=== PATIENT | male | born 1985 | race Caucasian/White ===

== ENCOUNTER 2024-04-05 12:26 | Inpatient (IN) | payer OTHER, SELFPAY ==
[2024-04-05] VITALS (17 sets, daily range): BP systolic 127–189; BP diastolic 88–143; BMI 24.8
--- NOTE | 2024-04-05 09:22 | ED.GENMED ---
History of Present Illness
General
Chief Complaint: Crisis Evaluation
Source: patient and significant other
Exam Limitations: none
Time Seen by Provider: 04/05/24 09:02
Nursing documentation reviewed up to this point in time: agreed with
Travel History
Have you had any contact with someone who has COVID-19?: No
Do you have any symptoms of coronavirus? Fever > 100 degrees, chills, cough, shortness of breath, sore throat, loss of taste or smell, muscle aches, or headache?: No
History of Present Illness
History of Present Illness:
38-year-old male with a past medical history of polysubstance use who presents to the emergency department brought in by police on a 302 for bizarre behavior/delusions. Apparently he was found running around in the [place] today, was talking
to himself. He was doing similar things last night. Patient says that he believes that a friend with high level government clearance set up an obstacle course using holograms and he says that he was in the [place] obstacle [place].
He tells me that he feels physically fine�'I feel great.' He says that he had some alcohol last night but nothing today. He denies any drug use to me although apparently his girlfriend raise concerns for methamphetamine use. He denies any
suicidal feelings or intents and denies any homicidal ideation. Denies any chest pain, abdominal pain, shortness of breath, headache, neck pain, pain in his extremities, nausea or any other issues today.
Past History
Past History
ED Past Medical History: None
ED Past Surgical History: None
Social History
Tobacco: Smoker
Alcohol: None
Drug: Other (history of)
Personal:
Living: with family
Employment: Not employed
Family History
Family History: Hypertension
Review of Systems
Review of Systems
All Other Systems: ROS reviewed and negative except as documented in HPI and ROS
Respiratory: Denies trouble breathing
Cardiac: Denies chest pain
ABD/GI: Denies abdominal pain, nausea or vomiting
: Denies flank pain
Musculoskeletal: Denies neck pain or back pain
Neurological: Denies headache
Phy Exam
Physical Exam
Physical Exam:
General: Awake, alert, oriented x3; pressured speech, somewhat restless and shifting in the bed
Head: Normocephalic, atraumatic
Eyes: Conjunctiva normal, pupils 4 mm and reactive to light bilaterally
Throat: Airway intact, handling secretions
Neck: Trachea midline, supple without meningismus
Lungs: Clear to auscultation bilaterally, no wheezing, rales, rhonchi
Heart: Tachycardia with regular rhythm, no murmurs, gallops, or rubs
Abd: Soft, non distended, nontender
Neuro: Cranial nerves grossly intact, no gross motor or sensory deficits
Skin: He has some scratches/excoriations on the arms and the legs, no signs of cellulitis or infection
Extremities: Warm and well-perfused with no edema
Scores
Heart Failure Risk
Heart Failure Risk Score: Not Applicable
Heart Score for Chest Pain Patients
STEMI patient?: Not applicable
Withdrawal Assessment of Alcohol
Withdrawal Assessment Completed?: Not applicable
Course
Orders/Labs/Results
Orders:
Orders
04/05/24 09:16
Drug Screen, Urine [Urine Drug Abuse Screen] Urgent
Date Specimen was Collected: 04/05/24
Time Specimen was Collected: 10:37
04/05/24 09:17
Crisis Consult Routine
Reason for Consult: psychosis
04/05/24 09:27
Lorazepam [Ativan] 0.5 mg PO NOW STA
04/05/24 09:28
Electrocardiogram (*1) Urgent
Reason for Study: Bradycardia / Tachycardia
EKG- Treatment ONCE
04/05/24 09:30
CPK [Creatine Phosphokinase] Urgent
04/05/24 09:31
Acetaminophen Urgent
Alcohol Urgent
CMP [Comprehensive Metabolic Panel] Urgent
Complete Blood Count/With Diff Urgent
Salicylate Urgent
04/05/24 10:08
Bladder Scan- Treatment ONCE
Urinalysis Reflex To Culture Urgent
Date Specimen was Collected: 04/05/24
Time Specimen was Collected: 10:37
0.9% Sodium Chloride 1000 ml [Nss] 1,000 ml IV BOLUS
US Renal With Bladder Urgent
Comment:
Reason For Exam: PRECIOUS
Abnormal Lab Results
04/05/24
09:31
WBC 16.1 H 10^3/uL
(4.8-10.8)
MCH 31.5 H pg
(27.0-31.0)
Abs Immat Gran (auto) 0.1 H 10^3/uL
(0-0.05)
Absolute Neuts (auto) 13.2 H 10^3/uL
(1.4-6.5)
Absolute Lymphs (auto) 1.0 L 10^3/uL
(1.2-3.4)
Absolute Monos (auto) 1.7 H 10^3/uL
(0.1-0.6)
Neutrophils % 82.1 H %
(42.2-75.2)
Lymphocytes % 6.5 L %
(20.5-51.1)
Monocytes % 10.7 H %
(1.7-9.3)
Carbon Dioxide 14 L* mmol/L
(22-30)
BUN 42 H mg/dl
(9-20)
Creatinine 3.2 H mg/dL
(0.7-1.3)
Glucose 106 H mg/dl
(70-99)
AST 352 H U/L
(17-59)
ALT 122 H U/L
(0-50)
Total Protein 8.8 H g/dl
(6.3-8.2)
Albumin 5.6 H g/dl
(3.5-5.0)
Salicylates < 1.0 L mg/dl
(2.0-20.0)
Acetaminophen < 10 L ug/ml
(10-30)
04/05/24 09:31
04/05/24 09:31
Vital Signs
Initial and Last Documented VS:
Initial Vital Signs
Temp Pulse Resp BP Pulse Ox
37.2 C 130 22 189/119 96
04/05/24 09:01 04/05/24 09:01 04/05/24 09:01 04/05/24 09:01 04/05/24 09:01
Last Documented Vital Signs
Temp Pulse Resp BP Pulse Ox
37.2 C 130 22 189/119 96
04/05/24 09:01 04/05/24 09:01 04/05/24 09:01 04/05/24 09:01 04/05/24 09:01
MDM/Problems Addressed
Differential Diagnosis Includes:
Psychosis, drug intoxication, alcohol intoxication, ron
MDM/Problems Addressed:
38-year-old male presents to the emergency room on a 302 filed by police after being found running in the [facility] has delusions that a friend with high level government clearance set up an obstacle course in the [facility] using holograms. He denies
drug or alcohol use today but apparently his significant other was concern for methamphetamine use. He has no physical complaints and says that he feels well. He is hypertensive and tachycardic, otherwise normal vitals. Exam as above. Will plan
to check basic screening labs including a CBC, CMP, Tylenol and salicylate levels, alcohol level, UDS. Will check screening EKG. He does appear somewhat restless/anxious will dose with some p.o. Ativan which I suspect will also help with
tachycardia and hypertension. 302 has been followed by police, crisis is aware of the patient, will monitor on continuous observation. Reassess after the above.
Labs reviewed: CBC shows a leukocytosis to 16.1. CMP shows acute kidney injury with a creatinine of 3.2 from baseline of less than 1. He has a metabolic acidosis with a bicarb of 14 and elevated anion gap of 20. Glucose is normal. Suspect anion
gap acidosis is secondary to uremia from his acute kidney injury. Added on CPK given reported methamphetamine use and concern for possible rhabdomyolysis, also added a urinalysis. Could also be prerenal secondary to dehydration in the setting of
his recent bizarre behavior. Ordered 1 L of normal saline to start. Will check a bladder scan for signs of retention. Check a renal bladder ultrasound. Will plan for medical admission prior to psychiatric treatment�updated our crisis team.
Chronic conditions affecting care:
Substance use
Acute Exacerbation and/or Progression of Chronic Illness:
Acutely hypertensive
Acute Exacerbation and/or Progression of Chronic Illness: HTN
*Pulse Oximetry
Patient hypoxic: no
*EKG
Interpreted by ED Provider?: Yes
Heart Rate: 117
Rate: tachycardiac
Rhythm: sinus
[place]: normal axis
Interval: normal interval
QRS Pattern: normal QRS
Ischemia: non-specific ST changes
*Critical Care Note
Total Time (30-74mins, 75-104mins- exclusive of procedures): Not Applicable
Data Reviewed
Source: patient
Patient Management
Discussion with other providers: Hospitalist (Discussed with hospitalist) and Other (Discussed with our crisis staff)
Escalation/DeEscalation of care consider admission/obs:
Medical admission indicated
ED Attending Note
-
Portions of this chart may have been created with voice recognition software.� Occasional wrong word or��sound alike� substitutions may have occurred due to the inherent limitations of voice recognition software.
Discharge Plan
Departure
Admit to doctor: Tristan
Presentation/result/management discussed w/ accepting MD/DO: Hospitalist
Discharge Problem:
Psychosis, PRECIOUS (acute kidney injury), LFT elevation
Prescriptions:
No Action
metronidazole 500 MG tablet
500 mg PO TID Qty: 21 0RF
ciprofloxacin HCl 500 MG tablet
500 mg PO BID Qty: 14 0RF
oxycodone-acetaminophen 5 MG/325 MG tablet
1 tab PO Q6HPRN PRN (Reason: pain) Qty: 7 0RF
Referrals:
UNKNOWN,NO INTERVIEW [Family Provider] -
Interventions
Interventions:
*Risk Screen - Suicide Last Done: 04/05/24 08:55
*General Assessment Last Done: 04/05/24 09:04
*Neglect/Abuse Screening Last Done: 04/05/24 08:55
ED- Fall Risk Assessment Last Done: 04/05/24 09:04
*ED COVID-19 Vaccine History Last Done: 04/05/24 08:55
ED-Psychological Assessment Last Done: 04/05/24 09:04
Discharge Date and Time
Print Language: SLOVAK
[2024-04-05 09:44] LABS: % Basophils 0.3 % (0-2); % Immature Granulocytes 0.4 % (0-0.5); % Lymphocytes 6.5 % (20.5-51.1); % Monocytes 10.7 % (1.7-9.3); % Neutrophils 82.1 % (42.2-75.2); Absolute Basophils 0.1 10^3/uL (0-0.2); Absolute Immature Granulocytes 0.1 10^3/uL (0-0.05); Absolute Monocytes 1.7 10^3/uL (0.1-0.6); Absolute Neutrophils 13.2 10^3/uL (1.4-6.5); Hematocrit 43.4 % (39.0-52.0); Hemoglobin 15.9 g/dL (13.0-18.0); Mean Corp Hgb Conc. 36.6 g/dL (33.0-37.0); Mean Corpuscular Hgb 31.5 pg (27.0-31.0); Mean Corpuscular Volume 86.1 fL (80.0-94.0); Nucleated Red Blood Cells % 0 % (-); Platelet Count 229 10^3/uL (130-400); Red Blood Cell Count 5.04 10^6/uL (4.70-6.10); Red Cell Dist. Width 12.4 % (11.5-14.5); White Blood Cell Count 16.1 10^3/uL (4.8-10.8)
[2024-04-05 10:01] LABS: ALT (SGPT) 122 U/L (0-50); AST (SGOT) 352 U/L (17-59); Acetaminophen < 10 ug/ml (10-30); Albumin 5.6 g/dl (3.5-5.0); Alcohol < 10 mg/dl; Alkaline Phosphatase 82 U/L (38-126); Blood Urea Nitrogen 42 mg/dl (9-20); Calcium 10.2 mg/dl (8.4-10.2); Carbon Dioxide 14 mmol/L (22-30); Chloride 102 mmol/L (98-107); Estimated Creatinine Clearance 29 ml/min; Glucose 106 mg/dl (70-99); Potassium 3.7 mmol/L (3.5-5.1); Salicylate < 1.0 mg/dl (2.0-20.0); Sodium 136 mmol/L (135-145); Total Bilirubin 1.3 mg/dl (0.2-1.3); Total Protein 8.8 g/dl (6.3-8.2); eGFR 24.31
[2024-04-05] MEDS: NSS 1000 IV (11:04)
[2024-04-05 11:10] LABS: Urine Albumin 1+ (Neg - Trace); Urine Bilirubin 1+ (Negative); Urine Character Clear (Clear); Urine Color Amber; Urine Glucose Negative (Negative); Urine Ketone 2+ (Negative); Urine Leukocyte Trace (Negative); Urine Nitrite Negative (Negative); Urine Occult Blood 4+ (Negative); Urine Specific Gravity 1.025 (<1.030); Urine Urobilinogen Negative (Neg - 1+)
[2024-04-05 11:12] LABS: Creatine Phosphokinase 14776 U/L (55-170)
--- NOTE | 2024-04-05 11:25 | PHANOTE ---
Med Rec Note- patient has no pharmacy or ecw records at this time, patient currently been talk to by police and staff
[2024-04-05 11:39] LABS: Amphetamines Positive (Negative); Barbiturates Negative (Negative); Benzodiazepines Negative (Negative); Buprenorphine Negative (Negative); Cocaine Negative (Negative); Marijuana Positive (Negative); Methadone Negative (Negative); Methamphetamines Positive (Negative); Opiates Negative (Negative)
[2024-04-05 11:40] LABS: Phencyclidine Negative (Negative); Tricyclic Antidepressants Negative (Negative)
[2024-04-05 11:47] LABS: Urine Red Blood Cell 0-2 /HPF (0-2); Urine White Cell 0-2 /HPF (0-5)
--- NOTE | 2024-04-05 11:54 | HPS.HSE ---
Family Physician
-
Family Physician: NO INTERVIEW UNKNOWN
Chief Complaint
-
Bizarre behavior
History of Present Illness
38-year-old male with a past medical history of cigarette nicotine dependency and polysubstance use was brought in by police under a 302 for bizarre behavior with delusional thoughts. Per report, patient was found running around in [place] today. He was witnessed talking to himself. Patient states that his nephew came home a few nights ago, and he was with his nephew. Then he says that this morning, he was outside in the [place] doing an obstacle course. He admits to using
marijuana, states he has a medical marijuana card. He denies other street drug use. He denies audio hallucinations. No suicidal ideation, homicidal ideation. No chest pain, shortness of breath, abdominal pain, nausea, or vomiting.
Medical History
Past Medical History
Past Medical History: Reports Other
Additional Past Medical History:
Polysubstance abuse
Left ankle injury status post surgery
Internal hemorrhoids
Past Surgical History: Reports Other
Additional Past Surgical History:
Left ankle surgery
Social History
Tobacco: Smoker
Alcohol: Occasional
Drug: Marijuana
Family History
Family History: Not pertinent
Allergies / Home Medications
Allergies reflects when Allergies were last updated in [employer].
Home Medications with original date entered in [employer]
Allergy/Medication List:
Allergies
Allergy/AdvReac Type Severity Reaction Status Date / Time
NKA - No Known Allergies Allergy Unknown Uncoded 04/05/24 09:04
Home Medications Table - record
�Medication �Instructions �Recorded �Confirmed
Unobtainable 04/05/24 04/05/24
Review of Systems
-
A 12 point ROS was completed and negative except as noted: Yes
Physical Exam
Vital Signs
Vital Signs
Temp Pulse Resp BP Pulse Ox
98.9 F 110 16 183/111 97
04/05/24 09:01 04/05/24 11:30 04/05/24 11:30 04/05/24 11:30 04/05/24 11:30
Physical Exam
General: No Apparent Distress and Other (Appears agitated)
HEENT: NormoCephalic, Anicteric and Moist mucous membranes
Respiratory: Clear
Cardiac: Tachycardia
GI: Soft
Musculoskeletal: No Clubbing, No Cyanosis and No Edema
Laboratory Results
-
04/05/24 09:31
04/05/24:
Laboratory Results
Total Bilirubin 1.3 mg/dl (0.2-1.3) 04/05/24:31
AST 352 U/L (17-59) H 04/05/24:
ALT 122 U/L (0-50) H 04/05/24:31
Alkaline Phosphatase 82 U/L (38-126) 04/05/24 09:31
Impression/Plan
-
HPI: 38-year-old male with a past medical history of cigarette nicotine dependency and polysubstance use was brought in by police under a 302 for bizarre behavior with delusional thoughts. Per report, patient was found running around in [place] today. He was witnessed talking to himself. Patient states that his nephew came home a few nights ago, and he was with his nephew. Then he says that this morning, he was outside in [place]. He admits to using
marijuana, states he has a medical marijuana card. He denies other street drug use. He denies audio hallucinations. No suicidal ideation, homicidal ideation. No chest pain, shortness of breath, abdominal pain, nausea, or vomiting.
#Acute psychosis
Likely amphetamine induced
UDS positive for amphetamine and methamphetamines
Patient is on a 302 by police, consult psychiatry
#Polysubstance abuse
UDS positive for amphetamine, methamphetamine
Will need psychiatric treatment upon discharge
#Uncontrolled hypertension
#Tachycardia
Suspect from amphetamine intoxication
IV fluids, IV labetalol as needed
#Rhabdomyolysis
Give IV fluids, trend creatinine
#Metabolic acidosis
Give sodium bicarb IV fluids, check lactic acid
#Acute kidney injury
Avoid nephrotoxic drugs/NSAIDs
Check postvoid residual
IV fluids as above, trend creatinine
#Transaminitis
Likely from alcohol use, trend
#Leukocytosis
Afebrile, no signs or symptoms of infection
Likely reactive, monitor off of antibiotics
DVT prophylaxis�SCDs
Full code
[2024-04-05 12:10] LABS: Fentanyl, Urine Negative (Negative)
[2024-04-05] MEDS: SODIUM BICARBONATE 1075 MEQ IV ×2 (13:23→20:45)
[2024-04-05] MEDS: TRANDATE 10 MG IV (13:30)
--- NOTE | 2024-04-05 14:15 | W.PN.UPDATE ---
Update Note
Progress Note Update
Pt seen for 302 exam. Pt alert, shaky, with pressured and tangential speech. Pt expressing spontaneous bizarre/persecutory delusions about being made to run a training course by a squad/brotherhood because he offended them. Pt states it was a
plan, states he was violated by them. Pt on 302 by police, found running through [place] property. Pt has many scratches on arms and legs. BP and Creatinine are elevated. Pt being admitted for medical treatment. Pt denies having any
mental health treatment or medications. Pt reportedly has trespassing charge pending.
Imp: Unspecified Psychotic d/o
R/o substance- induced psychosis or withdrawal- pt has hx of heroin and methamphetamine use in the past
Rec: 302 upheld. continue observation/evaluation, possible inpatient psych placement pending further eval
will follow
--- NOTE | 2024-04-05 15:41 | EDRN ---
Patient taken to room 212 by ED RN on monitor on stretcher with Bicarb drip infusing.
[2024-04-05] MEDS: CATAPRES 0.100000000000000006 MG PO ×2 (16:15→23:06)
[2024-04-05] MEDS: ATIVAN 1 MG IV (17:18)
[2024-04-05 21:43] LABS: PT 14.1 Sec (11.4-14.6)
--- NOTE | 2024-04-05 21:50 | PTCARENOTE ---
Pt failed alcohol screening during admission but remained without PRN medications ordered for MSAS protocol. 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
[2024-04-05] MEDS: THIAMINE INJECTION 200 MG IV (23:07)
[2024-04-06] VITALS (7 sets, daily range): BP systolic 125–148; BP diastolic 75–94
[2024-04-06] MEDS: SODIUM BICARBONATE 1075 MEQ IV ×2 (03:22→11:13)
[2024-04-06] MEDS: ATIVAN 1 MG PO ×2 (04:41→14:49)
--- NOTE | 2024-04-06 04:51 | PTCARENOTE ---
Pt drowsy with mild hallucinations at the start of the shift. Pt much more awake and alert currently. AAOx3, no hallucinations present. Pt still has mild confusion on the events that occurred leading up to his filed 302, but remembers a majority of
his day. Pt with an MSAS score as high as 6 with mild withdrawal symptoms. Discussed MSAS protocol with pt, education provided on purpose and safety of protocol. Pt politely declined Ativan per MSAS protocol previously, states his symptoms are not
due to alcohol withdrawal. Pt believes he was drugged, very adamant his symptoms are withdrawal from drugs. Pt is now agreeable to PRN PO Ativan per MSAS protocol, see MAR. Pt states although he still does not believe he is withdrawing from alcohol,
his tremors and mild diaphoresis are causing discomfort that is disrupting his sleep. Pt is very pleasant and polite with staff and 1:1 sitter. POC for today discussed, consults reviewed. Pt resting comfortably in bed watching TV, 1:1 sitter remains
at bedside.
[2024-04-06 06:24] LABS: Hemoglobin 12.6 g/dL (13.0-18.0); Mean Corpuscular Hgb 31.3 pg (27.0-31.0); Mean Corpuscular Volume 86.8 fL (80.0-94.0); Mean Platelet Volume 9.1 fL (7.4-10.4); Platelet Count 191 10^3/uL (130-400); Red Blood Cell Count 4.03 10^6/uL (4.70-6.10); Red Cell Dist. Width 12.5 % (11.5-14.5); White Blood Cell Count 7.3 10^3/uL (4.8-10.8)
[2024-04-06 07:00] LABS: ALT (SGPT) 99 U/L (0-50); AST (SGOT) 275 U/L (17-59); Albumin 3.8 g/dl (3.5-5.0); Alkaline Phosphatase 56 U/L (38-126); Blood Urea Nitrogen 34 mg/dl (9-20); Calcium 8.4 mg/dl (8.4-10.2); Carbon Dioxide 28 mmol/L (22-30); Chloride 104 mmol/L (98-107); Estimated Creatinine Clearance 77 ml/min; Glucose 107 mg/dl (70-99); Magnesium 2.7 mg/dl (1.6-2.3); Potassium 3.2 mmol/L (3.5-5.1); Sodium 137 mmol/L (135-145); Total Bilirubin 1.2 mg/dl (0.2-1.3); Total Protein 6.2 g/dl (6.3-8.2); eGFR > 60.00
--- NOTE | 2024-04-06 07:16 | W.PN.HOSP.TC ---
Today's Communication/Plan
-
see bold
Assessment / Plan
Assessment / Plan
HPI: 38-year-old male with a past medical history of cigarette nicotine dependency and polysubstance use was brought in by police under a 302 for bizarre behavior with delusional thoughts. Per report, patient was found running around in [place] today. He was witnessed talking to himself. Patient states that his nephew came home a few nights ago, and he was with his nephew. Then he says that this morning, he was outside in [place]. He admits to using
marijuana, states he has a medical marijuana card. He denies other street drug use. He denies audio hallucinations. No suicidal ideation, homicidal ideation. No chest pain, shortness of breath, abdominal pain, nausea, or vomiting.
#Acute psychosis
Likely amphetamine induced
UDS positive for amphetamine and methamphetamines
Patient is on a 302 by police, appreciate psychiatry input, 302 no longer needed
#Polysubstance abuse
UDS positive for amphetamine, methamphetamine
Patient denies illicit drug use
He smokes marijuana medically
Encourage patient to abstain from illicit drug use
#Uncontrolled hypertension
#Tachycardia
Suspect from amphetamine intoxication
Resolved, continue clonidine
#Rhabdomyolysis
CK trending down, continue IV fluids, trend CK
#Daily alcohol drinker
MSAS protocol, thiamine, folic acid
#Metabolic acidosis
Resolved
#Acute kidney injury
Avoid nephrotoxic drugs/NSAIDs
Resolved with IV fluids
#Transaminitis
Likely from alcohol use, improving
#Hypokalemia
Replete, magnesium
#Leukocytosis
Afebrile, no signs or symptoms of infection
Likely reactive, resolved without antibiotics
DVT prophylaxis�SCDs
Full code
Total time spent to see the patient on the floor, examine the patient, review data and lab results, discuss treatment plan with patient, nursing staff around 50 minutes.
Physical Exam
General: No acute distress
HEENT: Normocephalic, Atraumatic, EOMI, MMM
Respiratory: Clear to Auscultation bilaterally
Cardiac: Normal S1/S2, Regular Rate and Rhythm
GI: Soft, Nontender, Nondistended, Normal Bowel Sounds
Extremities: No Clubbing, Cyanosis, or Edema
Neuro: Nonfocal/Grossly Intact
Psych: Calm, Cooperative
Derm: No Visible lesions
Anticipated Discharge: Within 24 hours
Subjective/Interval History
-
Date of Service: April 06, 2024
Denies hallucinations, homicidal ideation, suicidal ideation. No fever, no vomiting.
Objective Data
-
Labs:
Laboratory Results
04/05/24 04/06/24
21:28 05:04
WBC 7.3
Hgb 12.6 L D
Hct 35.0 L
Plt Count 191
PT 14.1
INR 1.10
Sodium 137
Potassium 3.2 L
Chloride 104
Carbon Dioxide 28
BUN 34 H
Creatinine 1.2
Glucose 107 H
Calcium 8.4 D
Total Bilirubin 1.2
AST 275 H
ALT 99 H
Alkaline Phosphatase 56
Vital Signs:
Vital Signs
Temp Pulse Resp BP Pulse Ox
98.1 F 78 16 134/87 96
04/06/24 07:02 04/06/24 07:02 04/06/24 07:02 04/06/24 07:02 04/06/24 07:02
I&O
04/05/24 04/06/24 04/07/24
06:59 06:59 06:59
Intake Total 1320 / 1320
Balance 1320 / 1320
[2024-04-06 08:36] LABS: Creatine Phosphokinase 8160 U/L (55-170)
[2024-04-06] MEDS: KCL 40 MEQ PO (08:50)
[2024-04-06] MEDS: FOLVITE 1 MG PO (08:51)
[2024-04-06] MEDS: CATAPRES PO (08:51)
[2024-04-06] MEDS: THIAMINE INJECTION 200 MG IV ×3 (08:52→23:19)
--- NOTE | 2024-04-06 11:01 | CON.MD ---
Consultation - Medical
-
patient seen chart reviewed. discussed w nursing. the patient is a 38 year old man here on a 302 . the petition was filed by police as patient was running in the neighborhood and was found to be agitated and paranoid. it was upheld by dr quan who
noted what seemed to be persecutory delusions. the patient was not placed on antipsychotic medications and nursing report he is cooperative. his one to one also notes patient is cooperative and pleasant. the patient denies any psych hx. he does
admit to a hx of substance abuse with methamphetamine but says he has been sober for years from meth. he does consume a six pack daily and says he has not experienced withdrawal sx or sz but unclear if he is sober long enough to experience
withdrawal. he had ampets meth bzp and mj in urine. he adamantly denies the use of the ffirst three. says he does use mj daily which he gets from a dispernsary NOT off the street. he denies depression. energy is normal sleep okay appetite is
good. he can enjoy self. nothing to indicate si. he does not remember yesterday being fearful others might hurt him and denies any such fears now
past psych hx patient has been at rehab several times the last seven years ago. he has never been treated for psychiatric disorders specifically
substance abuse see above states for years only etoh and mj is puzzled as to the other substances in tox screen
medical denies seroius medical issues but noted hypokalemia and hypomg as well as elevated cpk and transaminases ua with ketones bili and inc albumen tox screen as above
fh denied
works as cnc milling machinist for five years. says good relationship at work. five kids w the same woman. not .
mse alert ox3 pleasant coopeartive speech and thought process nl no abnormal movements mood is normal affect ok no si no hi no psychosis i could see aver intell insight judgment fair
dx unspecified psychosis resolved likely secondary to substances hx mixed substance abuse possible etoh use d/o
recommendations patient seems to be back to his normal mental state at present. i d o not see any indication of psychosis. do not recommend any psych meds. strongly urge him to stop drinking etoh. withdrawal is a risk of he stops suddenly and he
should consider iop. would suggest bcares consult. would also suggest he stop using cannabis as it increases the likelihood of psychotic sx. i cannot explain the tox screen which is + for meth and amphets if he did not use. he can be dc when
medically cleared. the 302 is expunged upon dc and there are no grounds for a 303.
--- NOTE | 2024-04-06 11:21 | CM ---
Addendum entered by DAV Pereira 04/06/24 13:47:
Psychiatrist stated that she will not be pursuing a 303.
Original Note:
Reviewed chart, messaged Psychiatrist to obtain information regarding patient and whether he will remain a 302/get status.
Plan: Case management will continue to follow and assist with discharge planning. Will await plan. Currently a 302, not medically stable.
--- NOTE | 2024-04-06 14:15 | CM ---
Reviewed chart. Spoke with Psychiatry who stated that she does not see grounds to uphold 302 or pursue 303. Met with patient to obtain information for assessment. Patient stated he if feeling a lot better. Denied resources for ETOH or substance.
Patient stated that he lives with his significant other in a one story home with 2 steps to enter. He is independent with his ADLs, personal care, dressing, bathing and ambulation. He does not drive but stated that his brother in law takes him to
work and his does the errands. 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 He has 5 children with his significant other.
Patient stated that he feels like he just wants to return home and is eager to be medically cleared.
Patient denied wanting any Psychiatric resources.
Patient has a prescription plan and uses [facility] in [place] for all of his medications.
He has no PCP.
Plan: Case management will continue to follow and assist with discharge planning. Patient would like to return home. Psych does not want to pursue 303 and 302 has been lifted. Patient off 1:1.
[2024-04-06] MEDS: NSS 1000 IV (15:46)
[2024-04-06] MEDS: CATAPRES 0.100000000000000006 MG PO ×2 (15:53→21:52)
[2024-04-07] MEDS: NSS 1000 IV (01:27)
[2024-04-07 03:32] VITALS: BP 137/93
[2024-04-07 06:30] LABS: Hematocrit 31.2 % (39.0-52.0); Hemoglobin 11.4 g/dL (13.0-18.0); Mean Corp Hgb Conc. 36.5 g/dL (33.0-37.0); Mean Corpuscular Hgb 31.8 pg (27.0-31.0); Mean Corpuscular Volume 86.9 fL (80.0-94.0); Mean Platelet Volume 9.2 fL (7.4-10.4); Platelet Count 158 10^3/uL (130-400); Red Blood Cell Count 3.59 10^6/uL (4.70-6.10); Red Cell Dist. Width 12.6 % (11.5-14.5); White Blood Cell Count 4.6 10^3/uL (4.8-10.8)
[2024-04-07 07:00] VITALS: BP 152/98
[2024-04-07 07:23] LABS: ALT (SGPT) 88 U/L (0-50); AST (SGOT) 174 U/L (17-59); Albumin 3.1 g/dl (3.5-5.0); Alkaline Phosphatase 43 U/L (38-126); Blood Urea Nitrogen 16 mg/dl (9-20); Calcium 7.9 mg/dl (8.4-10.2); Carbon Dioxide 27 mmol/L (22-30); Chloride 109 mmol/L (98-107); Creatine Phosphokinase 3423 U/L (55-170); Estimated Creatinine Clearance 103 ml/min; Glucose 120 mg/dl (70-99); Potassium 3.4 mmol/L (3.5-5.1); Sodium 139 mmol/L (135-145); Total Bilirubin 0.7 mg/dl (0.2-1.3); Total Protein 5.4 g/dl (6.3-8.2); eGFR > 60.00
[2024-04-07] MEDS: FOLVITE 1 MG PO (09:03)
[2024-04-07] MEDS: CATAPRES 0.100000000000000006 MG PO (09:03)
[2024-04-07] MEDS: THIAMINE INJECTION 200 MG IV (09:03)
--- NOTE | 2024-04-07 09:10 | W.PN.HOSP.TC ---
Addendum entered and electronically signed by John Vicente MD 04/07/24 14:41:
Patient has nontraumatic rhabdomyolysis.
Original Note:
Today's Communication/Plan
-
Patient leaving AGAINST MEDICAL ADVICE
Assessment / Plan
Assessment / Plan
HPI: 38-year-old male with a past medical history of cigarette nicotine dependency and polysubstance use was brought in by police under a 302 for bizarre behavior with delusional thoughts. Per report, patient was found running around in the [place]
outside today. He was witnessed talking to himself. Patient states that his nephew came home a few nights ago, and he was with his nephew. Then he says that this morning, he was outside in the [place] doing an obstacle course. He admits to using
marijuana, states he has a medical marijuana card. He denies other street drug use. He denies audio hallucinations. No suicidal ideation, homicidal ideation. No chest pain, shortness of breath, abdominal pain, nausea, or vomiting.
#Rhabdomyolysis
CK 3,423 today, was 8,160, was 14,776 upon admission
Recommended to patient he stay another day for IV fluids
Patient adamant about leaving AGAINST MEDICAL ADVICE
Patient counseled regarding the risks, he would like to leave anyway
Patient counseled to drink plenty of fluids at home
#Acute psychosis
Likely amphetamine induced
UDS positive for amphetamine and methamphetamines
Patient is on a 302 by police, appreciate psychiatry input, 302 no longer needed
#Polysubstance abuse
UDS positive for amphetamine, methamphetamine
Patient denies illicit drug use
He smokes marijuana medically
Encourage patient to abstain from illicit drug use
#Uncontrolled hypertension
#Tachycardia
Suspect from amphetamine intoxication
Resolved, continue clonidine
#Daily alcohol drinker
MSAS protocol, thiamine, folic acid
#Metabolic acidosis
Resolved
#Acute kidney injury
Avoid nephrotoxic drugs/NSAIDs
Resolved with IV fluids
#Transaminitis
Likely from alcohol use, improving
#Hypokalemia
Replete, magnesium
#Leukocytosis
Afebrile, no signs or symptoms of infection
Likely reactive, resolved without antibiotics
DVT prophylaxis�SCDs
Full code
Physical Exam
General: No acute distress
HEENT: Normocephalic, Atraumatic, EOMI, MMM
Respiratory: Clear to Auscultation bilaterally
Cardiac: Normal S1/S2, Regular Rate and Rhythm
GI: Soft, Nontender, Nondistended, Normal Bowel Sounds
Extremities: No Clubbing, Cyanosis, or Edema
Neuro: Nonfocal/Grossly Intact
Psych: Calm, Cooperative
Derm: No Visible lesions
Anticipated Discharge: Today
Subjective/Interval History
-
Date of Service: April 07, 2024
Patient feels well, denies chest pain, denies shortness of breath. He wants to go home.
Objective Data
-
Labs:
Laboratory Results
04/07/24
05:13
WBC 4.6 L
Hgb 11.4 L
Hct 31.2 L
Plt Count 158
Sodium 139
Potassium 3.4 L
Chloride 109 H
Carbon Dioxide 27
BUN 16
Creatinine 0.9
Glucose 120 H
Calcium 7.9 L
Total Bilirubin 0.7
AST 174 H
ALT 88 H
Alkaline Phosphatase 43
Vital Signs:
Vital Signs
Temp Pulse Resp BP Pulse Ox
97.9 F 69 18 152/98 98
04/07/24 07:00 04/07/24 09:03 04/07/24 07:00 04/07/24 09:03 04/07/24 07:00
I&O
05/22/24 05/23/24 05/24/24
06:59 06:59 06:59
Intake Total 1320 / 1320 3120 / 3120
Balance 1320 / 1320 3120 / 3120
[2024-04-07] MEDS: KCL 40 MEQ PO (09:48)
--- NOTE | 2024-04-07 10:30 | W.PN.UPDATE ---
Update Note
Progress Note Update
patient seen chart reviewed. patient no longer displaying psychotic signs and sx as he did at admit. he wants to leave. spoke with dr tolentino he will likely be dc ama. dr tolentino explained to him re rhabdo . noted bp on the high side. he is however
competent to sign out ama able to understand medical issues and make decisions on his own behalf. discussed w him the absolute necessity of complete sobriety and the options he can call upon for help should he need support. psych signing off.
--- NOTE | 2024-04-07 11:30 | PTCARENOTE ---
Patient stated that he wants to leave the hospital today and feels well enough to go home. Physician educated patient on his diagnosis and the need for him to stay at the hospital to continue IV fluids which are helping his rhabdomyolysis. Physician
educated him on the risks of leaving against medical advice including kidney damage, kidney failure, and . Physician educated patient not to accept pills or medications from his friends, and she instructed him on the need to push fluids if he
were to go home. This nurse reiterated the physician's teachings and also the need to avoid alcohol, with patient's fiancee present. Patient left AMA at around 11 AM this morning with fikobye.
--- NOTE | 2024-04-07 13:06 | W.DCSUMMARY ---
Discharge Summary
Discharge Data
Date of Admission: 04/05/24
Date of Discharge: 04/07/24
-
Pending Results: No
Hospital Course
Discharge diagnosis:
Acute psychosis
Probable amphetamine intoxication
Polysubstance abuse
Acute nontraumatic rhabdomyolysis
Acute kidney injury
Uncontrolled hypertension
Tachycardia
Hospital course:
38-year-old male with a past medical history of cigarette nicotine dependency, daily alcohol use, and polysubstance use was brought in by police under a 302 for bizarre behavior with delusional thoughts. Per report, patient was found running around
in the [place] outside.
Patient was found to have acute kidney injury with a creatinine of 3.2, rhabdomyolysis with CK 14,776. Patient was treated with IV fluids, his creatinine normalized.
Patient was seen in conjunction with psychiatry, his psychosis resolved. Psychiatry states he no longer needs the 302. His UDS is positive for methamphetamine and amphetamines. He also had uncontrolled hypertension. Suspect he may have
amphetamine intoxication. He was started on clonidine 0.1 mg 3 times a day. His blood pressure improved.
After several days, his CK improved to 3,423. Patient wished to go home. He was counseled to stay for another day of IV fluids to help with his rhabdomyolysis. He was adamant about going home to his family. He understands the risks of leaving,
and wishes to leave anyway. He left AGAINST MEDICAL ADVICE. He is prescribed clonidine 0.1 mg twice a day for his persistent hypertension.
Disposition: AGAINST MEDICAL ADVICE
Discharge planning: Required 38 minutes
Discharge Plan
-
Patient Disposition: Against Medical Advice
Referrals:
UNKNOWN,NO INTERVIEW [Family Provider] -
Prescriptions:
New
clonidine HCl 0.1 mg tablet
0.1 mg PO BID Qty: 60 0RF
Discharge Date and Time
Discharge Date/Time: 04/07/24 11:17
Print Language: POLISH
--- NOTE | 2024-04-07 13:33 | PN.CDI ---
CDI
- -
CDI:
Physician Documentation Request
Admit Date: 04/05/24 12:26
Dear Doctor Do,
Patient brought to ED by police for 302 after being found running in the [place]. Diagnosis includes ' Acute psychosis- likely amphetamine induced'
Progress notes also include a diagnosis of Rhabdomyolysis
Please clarify the type of rhabdomyolysis:
Traumatic
Non traumatic
Other
Use of terms such as suspected, likely, concern for, or probable (associated with a specific diagnosis that is being evaluated, monitored, or treated as if it exists) are acceptable and can be coded in the inpatient setting, when documented at the
time of discharge.
Thank you,
Emily Joy RN, BSN
CDI Specialist
tiger text
Please use your independent medical judgment in providing your response.
== END 2024-04-07 11:17 | disposition left against medical advice (07) | DRG 558 ==
LOC: 2 NORTH 12:26
PROVIDERS: Nurse Practitioner Family; ADMITTING PHYSICIAN Family Medicine; EMERGENCY PHYSICIAN Emergency Medicine; OTHER PHYSICIAN Psychiatry & Neurology Psychiatry
DX: M62.82 Rhabdomyolysis (principal); F15.150 Other stimulant abuse with stimulant-induced psychotic disorder with delusions; E87.20 Acidosis, unspecified; N17.9 Acute kidney failure, unspecified; F12.90 Cannabis use, unspecified, uncomplicated; F15.129 Other stimulant abuse with intoxication, unspecified; I10 Essential (primary) hypertension; F17.210 Nicotine dependence, cigarettes, uncomplicated; E87.6 Hypokalemia; Z53.29 Procedure and treatment not carried out because of patient's decision for other reasons
CPT/HCPCS: 76770; 80053; 80143; 80179; 80306; 80307; 81003; 81015; 82077; 82550; 83735; 85025; 85027; 85610; 93005; 96360; 99285; 99406; J7030